=== PATIENT | female | born 1970 | race Two or more races ===

== ENCOUNTER 2022-03-16 23:24 | Inpatient (IN) | payer OTHER ==
[~2022-03-16] VITALS: Ht 154.9 cm; Wt 115.7 kg
== END 2022-03-20 22:00 | disposition home or self-care (01) | DRG 446 ==
LOC: ER 23:24 → MEDJ 03-17 06:27
PROVIDERS: ADMIT Internal Medicine; ATTEND Internal Medicine
DX: K81.0 Acute cholecystitis (principal); R10.11 Right upper quadrant pain; Z20.822 Contact with and (suspected) exposure to COVID-19

== ENCOUNTER 2022-05-13 05:09 | Day surgery (SDC) | payer OTHER ==
[~2022-05-13] VITALS: Ht 152.4 cm; Wt 113.4 kg
== END 2022-05-13 13:00 | disposition home or self-care (01) ==
LOC: CIR.AMB 05:09 → O/R 07:37 → CIR.AMB 07:45
PROVIDERS: ATTEND Surgery
DX: K80.10 Calculus of gallbladder with chronic cholecystitis without obstruction (principal); Z20.822 Contact with and (suspected) exposure to COVID-19; Z88.6 Allergy status to analgesic agent